=== PATIENT | male | born 1975 | race Two or more races ===

== ENCOUNTER 2024-12-27 07:06 | Emergency (ER) | payer MEDICAID, SELFPAY ==
[2024-12-27 07:08] VITALS: BMI 25.7
[2024-12-27 07:30] VITALS: BP 123/87; PULSE 116; RESP 18; TEMP 37.7; O2SAT 98
[2024-12-27 07:32] VITALS: BMI 25.3
--- NOTE | 2024-12-27 07:59 | EKG_ITS ---
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1975 Requested By: Kamille Louis ([facility]) Nolan Order Number: [id number] Reading MD: Kamille Louis ([facility]) Nolan Measurements Intervals [place] Rate: 111 P: 1 RI: 108 QRS: -66 QRSD: 81 T: 29 QT: 312 QTc: 426 Interpretive Statements SINUS TACHYCARDIA WITH SHORT RI INTERVAL POSSIBLE LEFT ATRIAL ENLARGEMENT [-0.1mV P WAVE IN V1/V2] PATTERN CONSISTENT WITH PULMONARY DISEASE POSSIBLE RIGHT VENTRICULAR CONDUCTION DELAY [RSR (QR) IN V1/V2] LEFT ANTERIOR FASCICULAR BLOCK [QRS AXIS <= -45, QR IN I, RS IN II] No previous ECG available for comparison /store/S0/[id number].pdf
--- NOTE | 2024-12-27 08:00 | PD.EDRME ---
Rapid Medical Screening Exam RME Arrival date/time: 12/27/24 07:06 This is a 49-year-old male presents to the emergency department with complaints of bodyaches, whole body shaking tremors, nausea vomiting history of DTs. I have greeted and performed a focused initial assessment of this patient. Initial appropriate labs ordered at this time. A comprehensive ED assessment and evaluation of the patient and analysis of all test and completion of medical decision making process will be conducted by additional ED provider. Chief Complaint: Flu Like Symptoms Time Seen by Provider: 12/27/24 07:30 Vital signs: Vital Signs Temperature 99.9 F 12/27/24 07:30 Pulse Rate 116 H 12/27/24 07:30 Respiratory Rate 18 12/27/24 07:30 Blood Pressure 123/87 H 12/27/24 07:30 Pulse Oximetry (%) 98 12/27/24 07:30 Oxygen Delivery Method Room Air 12/27/24 07:30
[2024-12-27] MEDS: SODIUM CHLORIDE 0.9% 1000 ML 1,000 ML 999 ML IV (08:42)
[2024-12-27 09:00] LABS: Basophils % (Auto) 1 % (0-2.5); Eosinophils % (Auto) 0 % (0-10); Hematocrit 45.4 % (41.0-53.0); Hemoglobin 16.3 g/dL (13.5-16.0); Immature Granulocytes % (Auto) 0 % (0-0); Immature Granulocytes Auto 0.01 Thou/mm3 (0.00-0.00); Lymphocytes % (Auto) 20 % (10-50); Mean Corpuscular HGB Conc 35.9 g/dl (31.0-37.0); Mean Corpuscular Hemoglobin 34.4 pg (25.0-35.0); Mean Corpuscular Volume 96 fL (80-100); Monocytes # (Auto) 0.4 Thou/mm3 (0.0-0.8); Monocytes % (Auto) 9 % (0-12); Neutrophils # (Auto) 3.6 Thou/mm3 (1.8-7.7); Neutrophils % (Auto) 71 % (37-80); Nucleated Red Blood Cell % 0 /100 WBC (0); Platelet Count 123 Thou/mm3 (140-440); RDW Standard Deviation 47.6 fL (35.1-43.9); Red Blood Count 4.74 Miln/mm3 (4.50-5.90)
--- NOTE | 2024-12-27 09:00 | PC.NURSE ---
Assume care for this 49 year male with chief c/o of N/V/shakiness and headache, Pt reports that he is a daily drinker and that the last her had an alcoholic beverage. On assessment the Pt CIWA is at 8, c/o of no pain, GCS of 15 and A&OX4. Pt was given update on plan of care. Pt was placed on panel monitor, call light within reach.
[2024-12-27] MEDS: DIAZEPAM 5 MG TABLET 20 MG PO ×2 (09:09→10:18)
[2024-12-27 09:29] LABS: Alanine Aminotransferase 27 U/L (10-49); Albumin, Serum 4.9 gm/dL (3.5-5.0); Albumin/Globulin Ratio 1.6 (1.2-2.2); Alcohol, Blood Medical 17.5 mg/dL (0-10.0); Alkaline Phosphatase 97 U/L (46-116); Anion Gap 15 (7-16); Aspartate Amino Transferase 43 U/L (0-34); BUN/Creatinine Ratio 9 Ratio (12-20); Bilirubin,Total 0.8 mg/dL (0.3-1.2); Blood Urea Nitrogen 6 mg/dL (9-23); Calcium 9.6 mg/dL (8.3-10.6); Calcium (Corrected) 9.6 mg/dL (8.5-10.1); Carbon Dioxide 23.8 mMol/L (20.0-31.0); Chloride 98 mMol/L (98-107); Creatinine (Component) 0.7 mg/dL (0.6-1.3); Estimated Creatinine Clearance 108.6 mL/min (>60); Glucose 166 mg/dL (74-106); Lipase 46 U/L (12-53); Osmolality,Calculated 275 (275-295); Potassium 4.1 mMol/L (3.4-5.1); Sodium 137 mMol/L (136-145); Total Protein 7.9 gm/dL (5.7-8.2); eGFR > 60 See Note
--- NOTE | 2024-12-27 10:05 | PD.EDALCOH ---
ED Alcohol RME/HPI General Chief Complaint: Flu Like Symptoms Stated Complaint: FLU LIKE SYMPTOMS Time Seen by Provider: 12/27/24 07:30 Arrival date/time: 12/27/24 07:06 RME / HPI RME / HPI narrative: 12/27/24 07:06 This is a 49-year-old male presents to the emergency department with complaints of bodyaches, whole body shaking tremors, nausea vomiting history of DTs. I have greeted and performed a focused initial assessment of this patient. Initial appropriate labs ordered at this time. A comprehensive ED assessment and evaluation of the patient and analysis of all test and completion of medical decision making process will be conducted by additional ED provider. DR. DANIELLE BOTELLO ED EVALUATION 49 year old male with history of hypertension, diabetes mellitus, and alcohol use disorder who presents to the ED for evaluation of tremors and sweating that began last night. These symptoms are accompanied by generalized weakness, nausea, and vomiting, which started this morning. The patient reports that his alcohol consumption is typically 4-5 tall cans (24oz) of beer, about 4-5 times per week, over the past 3 months. He notes that yesterday, he was not feeling well and only consumed 3 tall cans of beer. His last intake of his usual amount of alcohol occurred approximately 5 days ago. The patient denies fever, chest pain, cough, shortness of breath, abdominal pain, diarrhea, or any urinary symptoms. Related Data Previous Rx's ?Medication ?Instructions ?Recorded chlordiazepoxide HCl 10 mg capsule 10 mg PO TID #10 caps 04/16/21 empagliflozin 10 mg tablet 10 mg PO QAM #30 tabs 04/16/21 (Jardiance) folic acid 1 mg tablet 1 mg PO BID #60 tabs 04/16/21 metformin 1,000 mg tablet 1,000 mg PO BID #60 tabs 04/16/21 multivitamin-iron 9 mg-folic acid 1 tab PO QDAY #30 tabs 04/16/21 400 mcg-calcium and minerals tablet (Thera M Plus (ferrous fumarate)) thiamine mononitrate (vit B1) 100 100 mg PO BID #60 tabs 04/16/21 mg tablet (Vitamin B-1 (mononitrate)) Allergies Allergy/AdvReac Type Severity Reaction Status Date / Time No Known Allergies Allergy Verified 12/27/24 07:12 Review of Systems Review of Systems Narrative Review of Systems: Gen: No fever, no chills, no weight loss, +sweats, +generalized weakness, +tremors EYES: No discharge, no visual changes, no pain HEENT: No ear pain, no congestion, no sore throat PULM: no shortness of breath, no cough, no congestion CV: No chest pain, no dyspnea on exertion, no palpitations, no chest tightness GI: +nausea, +vomiting, no diarrhea, no pain, no constipation : No frequency, no urgency,? no dysuria Musc/skel: No joint pain, no back pain Skin: No rash, no ecchymosis, no lesions Neuro: +generalized weakness, no headache Past Medical History Past Medical History CARDIAC: Positive Hypertension ENDOCRINE: Positive Diabetes Mellitus Type 2 Family History FAMILY HISTORY: Negative Family Cardiac Disorders Social History SMOKING STATUS: Never smoker ED Exam Narrative Physical exam: GENERAL APPEARANCE: AxOx4, no obvious distress, nontoxic appearing, generalized tremors HEENT: NC, AT. MMM. EOMI, clear conjunctiva, oropharynx clear. NECK: Supple without lymphadenopathy. No stiffness or restricted ROM. HEART: Normal rate and regular rhythm, normal S1/S1, no m/r/g LUNGS: CTAB, moving air well. No crackles or wheezes are heard. ABDOMEN: Soft, nontender, nondistended with good bowel sounds heard. BACK: No midline C/T/L spine pain or deformity, No CVAT, no obvious deformity. EXTREMITIES: Without cyanosis, clubbing or edema. MUSCULOSKELETAL: FROM of all major joints, no chest tenderness NEUROLOGICAL: Generalized tremors. Alert and oriented, moving all 4 extremities. CN not formally tested but appear grossly intact. Skin: Warm, mildly diaphoretic, without any rash. Course Quality Measures none Orders Category Date Time Status Bedside Influenza A&B Antigen Test NOW Care 12/27/24 07:58 Completed EKG (ED ONLY) *Do not use* NOW Care 12/27/24 07:59 Completed Insert IV NOW Care 12/27/24 08:00 Completed EKG (ED Only) Stat Exams 12/27/24 07:59 Draft CBC Stat Lab 12/27/24 08:39 Completed Comprehensive Metabolic Panel Stat Lab 12/27/24 08:39 Completed Drug Screen,Urine Stat Lab 12/27/24 11:35 Completed Lipase Stat Lab 12/27/24 08:39 Completed HAJA [Alcohol, Blood Medical] Stat Lab 12/27/24 08:39 Completed Urinalysis Stat Lab 12/27/24 11:35 Received Diazepam [Valium] Med 12/27/24 13:44 Discontinued 10 mg PO X1 ONE Diazepam [Valium] Med 12/27/24 09:00 Discontinued 20 mg PO X1 ONE Diazepam [Valium] Med 12/27/24 10:08 Discontinued 20 mg PO X1 ONE Sodium Chloride 0.9% 1000 ml [Ns] 1,000 ml Med 12/27/24 08:00 Discontinued IV 999 mls/hr Reevaluation(s) Reevaluation #1: We reviewed all the results, analysis, and treatment plans. Patient is amenable to discharge. Strict return precautions were outlined. Patient was discharged in stable condition. Time: 13:45 Vital Signs Vital signs: Vital Signs Temperature 99.9 F 12/27/24 07:30 Pulse Rate 116 H 12/27/24 07:30 Respiratory Rate 18 12/27/24 07:30 Blood Pressure 123/87 H 12/27/24 07:30 Pulse Oximetry (%) 98 12/27/24 07:30 Oxygen Delivery Method Room Air 12/27/24 07:30 Pulse ox is 98% on room air which is adequate. Discharge Plan Plan Patient Disposition: HOME (Self Care) Prescriptions/Referrals Prescriptions/Med Rec: No Action chlordiazepoxide HCl 10 mg Capsule 10 mg PO TID Qty: 10 0RF folic acid 1 mg Tablet 1 mg PO BID Qty: 60 0RF Thera M Plus (ferrous fumarat) 9 mg iron-400 mcg Tablet 1 tab PO QDAY Qty: 30 0RF thiamine mononitrate (vit B1) [Vitamin B-1 (mononitrate)] 100 mg Tablet 100 mg PO BID Qty: 60 0RF metformin 1,000 mg tablet 1,000 mg PO BID Qty: 60 0RF Jardiance 10 mg tablet 10 mg PO QAM Qty: 30 0RF Referrals: No Primary/Family,Physician [Primary Care Provider] - In 1 week Problem List Clinical Impression: Alcohol withdrawal, Alcohol dependence Patient/Caregiver Discharge Instructions Education Materials: Alcohol Withdrawal: What to Expect Additional Instructions: No porfirio alcohol en exceso, considere suspender el consumo de alcohol por completo para mejorar mendez harry. Puede regresar al departamento de emergencias antes si los s?ntomas empeoran o si nota alg?n problema nuevo que le preocupe. Print Language: Indonesian Stand Alone Forms: Harini Award Info., Patient Portal Info Letter Alcohol MDM Narrative MDM Narrative: IMary Ann, am scribing for and in the presence of Dr. Webb. Patient data External records reviewed:: [facility] previous records (I reviewed ED visit on 07/31/2024) Clinical information provided by:: patient Social determinants that could affect healthcare access:: alcohol use Patient has the following chronic illnesses:: hypertension, diabetes mellitus, and alcohol use disorder How is presenting disease/condition affected by chronic disease/condition?: exacerbated by Evaluation data The following diagnostics were reviewed and interpreted by me:: lab results and EKG tracing(s) (Sinus tachycardia, rate 111, QT 312 ms, QTc 426 ms) Lab and/or radiology exams considered but not ordered:: None Interpretation Summary: As noted above Medications / Prescriptions Medications or Prescriptions considered but not ordered:: None Medication administrations:: Medication Administration History Discontinued Medications Diazepam (Diazepam 5 Mg Tablet) 20 mg PO X1 ONE Stop: 12/27/24 09:01 Last Admin: 12/27/24 09:09 Dose: 20 mg Documented By: PA Diazepam (Diazepam 5 Mg Tablet) 20 mg PO X1 ONE Stop: 12/27/24 10:09 Last Admin: 12/27/24 10:18 Dose: 20 mg Documented By: PA Diazepam (Diazepam 5 Mg Tablet) 10 mg PO X1 ONE Stop: 12/27/24 13:45 Last Admin: 12/27/24 14:26 Dose: 10 mg Documented By: PA Sodium Chloride (Ns) 1,000 mls @ 999 mls/hr IV .Q1H1M ONE Stop: 12/27/24 09:00 Last Infusion: 12/27/24 10:00 Dose: Infused Documented By: Admin: 12/27/24 08:42 Dose: 999 mls/hr Documented By: PA See above Consultations Consultation(s) initiated? (list below): No Diagnosis Differential diagnosis alcohol: alcohol withdrawal delirium, hypomagnesemia, alcohol intoxication, alcohol ketoacidosis and alcohol withdrawal syndrome Most likely diagnosis given after review of the tests above:: Alcohol withdrawal Alcohol dependance Admission Indicated Admission indicated?: not indicated Admission Request Was there a request for admission?: No Disposition Plan Disposition Plan: Discharge Discharge Attestation Discharge Attestation: The patient and all family members were given an opportunity to ask questions and understood the discharge instructions. Discharge instructions specifically effects, indications for sooner follow up or return to the emergency department, and the expected course of current diagnosis. Patient condition: Stable
[2024-12-27 10:24] VITALS: BP 103/71; PULSE 106; RESP 19; TEMP 37.2; O2SAT 94
[2024-12-27 11:42] VITALS: BP 108/72; PULSE 100; RESP 19; TEMP 36.9; O2SAT 96
--- NOTE | 2024-12-27 11:52 | PC.NURSE ---
Pt was walked around the ER nursing station with a steady gate, Pt only c/o of mild dizziness and headache. Dr. Webb made aware
[2024-12-27 12:01] LABS: Collection Type, Urine Clean Catch; Squamous Epithelial Cell,Urine 0 /hpf (0-5)
[2024-12-27 12:22] LABS: Amphetamine/Methamp Scrn,U Negative (Negative); Barbiturate Screen,Urine Negative (Negative); Benzodiazepines Screen,Urine Positive (Negative); Benzoylecgonine Screen, Ur Negative (Negative); Fentanyl Screen,Urine Negative (Negative); Opiate Screen,Urine Negative (Negative); THC Screen,Urine Negative (Negative)
[2024-12-27 13:57] VITALS: BP 115/73; PULSE 94; RESP 16; TEMP 36.8; O2SAT 97
[2024-12-27] MEDS: DIAZEPAM 5 MG TABLET 10 MG PO (14:26)
[2024-12-27 14:38] VITALS: BP 119/80; PULSE 89; RESP 16; TEMP 36.7; O2SAT 99
[2024-12-27 16:06] LABS: Bilirubin,Urine Negative (Negative); Blood,Urine Negative (Negative); Clarity,Urine Clear (Clear/Hazy); Color,Urine Lt-Yellow (Lt Yel-Yel); Glucose, Urine Trace (Negative); Ketones,Urine Negative (Negative); Leukocyte Esterase,Urine Negative (Negative); Nitrite,Urine Negative (Negative); Protein,Urine 1+ (Neg - Trace); RBC,Urine 1 /hpf (0-3); Specific Gravity,Urine 1.008 (1.001-1.035); Urobilinogen,Urine Negative mg/dL (0.0-1.0); WBC,Urine 1 /hpf (0-5)
== END 2024-12-27 14:39 | disposition home or self-care (01) ==
PROVIDERS: Nurse Practitioner Primary Care; Emergency Provider Emergency Medicine
DX: F10.239 Alcohol dependence with withdrawal, unspecified (principal); E11.9 Type 2 diabetes mellitus without complications; I10 Essential (primary) hypertension
CPT/HCPCS: 36415; 80053; 80307; 80320; 81001; 83690; 85025; 87400; 93005; 96360; 99284; J7030; A9270; G0480